=== PATIENT | male | born 1985 | race Two or more races ===

== ENCOUNTER 2023-10-26 16:13 | Inpatient (IN) | payer BC, OTHER ==
[~2023-10-26] VITALS: Ht 160 cm; Wt 94.9 kg
[2023-10-26] MEDS: MAALOX PLUS or MAALOX 30 ML PO ONE (20:17)
[2023-10-26] MEDS: GLUCAGON EMERG KIT 1mg/1ml IV ONE (22:17)
[2023-10-26 22:58] VITALS: PULSE 89; RESP 20; O2SAT 95
[2023-10-26] MEDS: METOCLOPRAMIDE HCL 5MG/ml INJ 2ml VIAL IV ONE (23:34)
[2023-10-26] MEDS: LORazepam 2MG/ML-1ML VIAL IV ONE (23:57)
[2023-10-27] VITALS (8 sets, daily range): BP systolic 136–141; BP diastolic 81–87; PULSE 76–91; RESP 16–20; TEMP 36.6; O2SAT 92–100
[2023-10-27 02:43] LABS: Basophils # (auto) 0.1 10 ^3/uL (0-0.2); Basophils % (auto) 0.9 % (0.0-2.0); Eosinophils # (auto) 0.2 10 ^3/uL (0-0.8); Eosinophils % (auto) 1.4 % (0.0-7.0); Hematocrit 46.6 % (41.0-53.0); Hemoglobin 15.5 g/dL (13.5-17.5); Lymphocytes # (auto) 2.1 10 ^3/uL (0.4-5.4); Lymphocytes % (auto) 13.9 % (10.0-50.0); Mean Corpuscular Hgb Conc. 33.2 g/dL (32.0-36.0); Mean Corpuscular Volume 81.4 fL (80.0-100.0); Monocytes # (auto) 1.2 10 ^3/uL (0-1.3); Monocytes % (auto) 7.5 % (0.0-12.0); Neutrophils # (auto) 11.8 10 ^3/uL (1.6-8.6); Neutrophils % (auto) 76.3 % (37.0-80.0); Red Blood Cells 5.72 10^6/uL (4.5-5.90); Red Cell Distribution Width 14.4 % (11.8-14.3); White Blood Cell 15.4 10^3/uL (4.4-10.8)
[2023-10-27 02:53] LABS: Alanine Aminotransferase 58 U/L (7-40); Albumin 4.5 g/dL (3.2-4.8); Alkaline Phosphatase 100 U/L (46-116); Anion Gap 10 (5-15); Aspartate Aminotransferase 36 U/L (13-40); BUN/Creatinine Ratio 24.4 (10.0-20.0); Bilirubin, Total 0.7 mg/dL (0.2-1.0); Blood Urea Nitrogen 22 mg/dL (9-23); Calcium 9.6 mg/dL (8.7-10.4); Carbon Dioxide 22 mmol/L (20-30); Chloride 111 mmol/L (98-107); Glucose 103 mg/dL (74-106); Potassium 4.1 mmol/L (3.5-5.1); Sodium 143 mmol/L (136-145); Total Protein 7.7 g/dL (5.7-8.2)
[2023-10-27] MEDS ORDERED: ONDANSETRON HCL 4 MG/2 ML VIAL IV PRN (04:45)
[2023-10-27] MEDS ORDERED: HYDROcodone-ACET 5/325MG TAB PO PRN (04:45)
[2023-10-27] MEDS ORDERED: NITROGLYCERIN 0.4 MG SL TAB SL PRN (04:45)
[2023-10-27] MEDS ORDERED: DOCUSATE SOD 100 MG CAP PO PRN (04:45)
[2023-10-27] MEDS ORDERED: MORPHINE SULFATE INJ 2 MG/ml SYRG IV PRN (04:45)
[2023-10-27] MEDS ORDERED: ACETAMINOPHEN 325 MG TAB PO PRN (04:45)
[2023-10-27] MEDS ORDERED: LORazepam 2MG/ML-1ML VIAL IV PRN (04:45)
[2023-10-27] MEDS: cefTRIAXone 1GM/50ML D5W 50 ML IV ONE (05:28)
[2023-10-27 05:44] LABS: Basophils # (auto) 0.1 10 ^3/uL (0-0.2); Basophils % (auto) 0.8 % (0.0-2.0); Monocytes # (auto) 1.2 10 ^3/uL (0-1.3); Nucleated Red Blood Cells % 0.2 %
[2023-10-27 05:47] LABS: Eosinophils # (auto) 0.3 10 ^3/uL (0-0.8); Eosinophils % (auto) 2.5 % (0.0-7.0); Hematocrit 45.1 % (41.0-53.0); Lymphocytes # (auto) 2.6 10 ^3/uL (0.4-5.4); Lymphocytes % (auto) 19.5 % (10.0-50.0); Mean Corpuscular Hemoglobin 26.9 pg (28.0-32.0); Mean Corpuscular Hgb Conc. 33.3 g/dL (32.0-36.0); Mean Corpuscular Volume 80.7 fL (80.0-100.0); Neutrophils # (auto) 9.2 10 ^3/uL (1.6-8.6); Neutrophils % (auto) 68.2 % (37.0-80.0); Red Blood Cells 5.59 10^6/uL (4.5-5.90); Red Cell Distribution Width 14.6 % (11.8-14.3); White Blood Cell 13.4 10^3/uL (4.4-10.8)
[2023-10-27] MEDS: D5W/SOD CHL 0.45% 1,000 ML IV SCH (05:58)
[2023-10-27 06:06] LABS: Alanine Aminotransferase 56 U/L (7-40); Albumin 4.5 g/dL (3.2-4.8); Alkaline Phosphatase 101 U/L (46-116); Anion Gap 11 (5-15); Aspartate Aminotransferase 34 U/L (13-40); BUN/Creatinine Ratio 26.7 (10.0-20.0); Blood Urea Nitrogen 23 mg/dL (9-23); Calcium 9.6 mg/dL (8.5-10.1); Carbon Dioxide 22 mmol/L (20-30); Chloride 111 mmol/L (98-107); Glucose 98 mg/dL (74-106); Potassium 3.9 mmol/L (3.5-5.1); Sodium 144 mmol/L (136-145)
[2023-10-27 06:07] LABS: Bilirubin, Total 0.7 mg/dL (0.2-1.0); Total Protein 7.3 g/dL (5.7-8.2)
[2023-10-27] MEDS ORDERED: cefTRIAXone 1GM/50ML D5W 50 ML IV SCH (09:00)
[2023-10-27 14:05] LABS: INR 1.05 (0.9-1.15)
[2023-10-27] MEDS ORDERED: LIDOCAINE 1% (LOCAL ANESTH.) PF 5ml SDV IJ ONE (14:31)
[2023-10-27] MEDS ORDERED: MIDAZOLAM HCL 2MG/2ML 2ml VIAL (1mg/ml) ONE (14:39)
[2023-10-27] MEDS ORDERED: KETAMINE 50mg/ML 1ml syringe ONE (14:39)
[2023-10-27] MEDS ORDERED: PROPOFOL 10 MG/ML 20 ML IV ONE (14:53)
[2023-10-27] MEDS: ONDANSETRON HCL 4 MG/2 ML VIAL IV ONE (15:15)
[2023-10-27] MEDS: SUCRALFATE 1 GM/10 ML ORAL SUSP PO SCH (18:01)
[2023-10-28] VITALS (9 sets, daily range): BP systolic 126–138; BP diastolic 80–86; PULSE 62–80; RESP 16–19; TEMP 36.6; O2SAT 95–97
[2023-10-28 06:24] LABS: Basophils # (auto) 0.1 10 ^3/uL (0-0.2); Eosinophils # (auto) 0.7 10 ^3/uL (0-0.8); Eosinophils % (auto) 6.3 % (0.0-7.0); Hematocrit 40.7 % (41.0-53.0); Hemoglobin 13.3 g/dL (13.5-17.5); Lymphocytes % (auto) 26.6 % (10.0-50.0); Mean Corpuscular Hemoglobin 26.8 pg (28.0-32.0); Mean Corpuscular Hgb Conc. 32.8 g/dL (32.0-36.0); Mean Corpuscular Volume 81.8 fL (80.0-100.0); Monocytes # (auto) 0.9 10 ^3/uL (0-1.3); Monocytes % (auto) 8.3 % (0.0-12.0); Neutrophils # (auto) 6.4 10 ^3/uL (1.6-8.6); Neutrophils % (auto) 57.8 % (37.0-80.0); Red Blood Cells 4.97 10^6/uL (4.5-5.90); Red Cell Distribution Width 14.2 % (11.8-14.3); White Blood Cell 11.1 10^3/uL (4.4-10.8)
[2023-10-28 06:43] LABS: Alanine Aminotransferase 43 U/L (7-40); Albumin 3.9 g/dL (3.2-4.8); Alkaline Phosphatase 90 U/L (46-116); Anion Gap 8 (5-15); Aspartate Aminotransferase 28 U/L (13-40); BUN/Creatinine Ratio 18.4 (10.0-20.0); Bilirubin, Total 0.7 mg/dL (0.2-1.0); Blood Urea Nitrogen 16 mg/dL (9-23); Calcium 8.7 mg/dL (8.5-10.1); Carbon Dioxide 23 mmol/L (20-30); Chloride 110 mmol/L (98-107); Glucose 93 mg/dL (74-106); Potassium 3.7 mmol/L (3.5-5.1); Sodium 141 mmol/L (136-145); Total Protein 6.3 g/dL (5.7-8.2)
[2023-10-28] MEDS: cefTRIAXone 1GM/50ML D5W 50 ML IV SCH (09:59)
[2023-10-29] VITALS (7 sets, daily range): BP systolic 117–167; BP diastolic 79–97; PULSE 59–77; RESP 17–20; TEMP 97.4–98.4; O2SAT 92–95
[2023-10-29 17:42] LABS: Urine Bacteria None Seen /hpf (None Seen)
[2023-10-29 17:57] LABS: Urine Blood Negative /uL (Negative); Urine Clarity Clear (Clear); Urine Color Colorless (Yellow); Urine Protein, UAD Negative (Negative); Urine Specific Gravity 1.007 (1.001-1.035); Urine Urobilinogen Normal (Negative); Urine WBC <1 /hpf (0 - 3)
[2023-10-29] MEDS: PANTOPRAZOLE 40 MG TAB PO SCH (22:18)
[2023-10-30 05:00] VITALS: BP 137/99; PULSE 75; RESP 20; TEMP 98; O2SAT 94
[2023-10-30 06:10] LABS: Basophils # (auto) 0.1 10 ^3/uL (0-0.2); Basophils % (auto) 0.9 % (0.0-2.0); Eosinophils # (auto) 0.8 10 ^3/uL (0-0.8); Eosinophils % (auto) 7.2 % (0.0-7.0); Hematocrit 41.2 % (41.0-53.0); Lymphocytes # (auto) 2.7 10 ^3/uL (0.4-5.4); Mean Corpuscular Hemoglobin 27.2 pg (28.0-32.0); Monocytes # (auto) 0.9 10 ^3/uL (0-1.3); Monocytes % (auto) 8.6 % (0.0-12.0); Neutrophils # (auto) 6.4 10 ^3/uL (1.6-8.6); Neutrophils % (auto) 58.3 % (37.0-80.0); Nucleated Red Blood Cells % 0.1 %; Red Blood Cells 5.15 10^6/uL (4.5-5.90); Red Cell Distribution Width 14.2 % (11.8-14.3); White Blood Cell 10.9 10^3/uL (4.4-10.8)
[2023-10-30 06:20] LABS: Alanine Aminotransferase 46 U/L (7-40); Alkaline Phosphatase 95 U/L (46-116); Anion Gap 9 (5-15); Aspartate Aminotransferase 27 U/L (13-40); BUN/Creatinine Ratio 10.4 (10.0-20.0); Blood Urea Nitrogen 8 mg/dL (9-23); Calcium 8.9 mg/dL (8.7-10.4); Carbon Dioxide 22 mmol/L (20-30); Chloride 108 mmol/L (98-107); Glucose 99 mg/dL (74-106); Potassium 3.7 mmol/L (3.5-5.1); Sodium 139 mmol/L (136-145)
[2023-10-30 06:21] LABS: Bilirubin, Total 0.4 mg/dL (0.2-1.0); Total Protein 6.9 g/dL (5.7-8.2)
[2023-10-30 08:00] VITALS: PULSE 75; RESP 20
[2023-10-30 09:00] VITALS: BP 149/98; PULSE 64; RESP 17; TEMP 98.2; O2SAT 94
[2023-10-30 13:00] VITALS: BP 148/105; PULSE 77; RESP 17; TEMP 98; O2SAT 95
[2023-10-30] MEDS: amLODIPine BESYLATE 5 MG TAB PO SCH (13:02)
[2023-10-30 17:00] VITALS: BP 131/93; PULSE 74; RESP 16; TEMP 98.4; O2SAT 95
[2023-10-30 21:00] VITALS: BP 124/78; PULSE 78; RESP 17; TEMP 98; O2SAT 98
[2023-10-31] VITALS (8 sets, daily range): BP systolic 115–160; BP diastolic 79–107; PULSE 66–105; RESP 17–20; TEMP 97.9–98.1; O2SAT 94–97
[2023-11-01 05:00] VITALS: BP 136/86; PULSE 76; RESP 18; TEMP 98.2; O2SAT 97
[2023-11-01 08:00] VITALS: PULSE 83; RESP 17; O2SAT 94
[2023-11-01 08:32] VITALS: BP 138/91; PULSE 83; RESP 17; TEMP 98.9; O2SAT 94
[2023-11-01] MEDS ORDERED: PANT40TA2 PO (11:38)
[2023-11-01] MEDS ORDERED: LEVO500T91 PO (11:38)
[2023-11-01 12:46] VITALS: BP 149/89; PULSE 85; RESP 17; TEMP 98.1; O2SAT 98
[2023-11-01 13:12] VITALS: BP 149/89; PULSE 85; RESP 17; TEMP 98.1; O2SAT 98
== END 2023-11-01 14:32 | disposition home or self-care (01) | DRG 872 ==
LOC: ER 16:13 → OVERFLOW 10-27 04:43 → EAST 10-27 16:07
PROVIDERS: ADMIT Nurse Practitioner Family; ATTEND Nurse Practitioner Acute Care
PROC: 0DB68ZX Excision of Stomach, Via Natural or Artificial Opening Endoscopic, Diagnostic (ICD-10-PCS; 2023-10-27)
PROC: 0DB28ZX Excision of Middle Esophagus, Via Natural or Artificial Opening Endoscopic, Diagnostic (ICD-10-PCS; 2023-10-27)
PROC: 0DB48ZX Excision of Esophagogastric Junction, Via Natural or Artificial Opening Endoscopic, Diagnostic (ICD-10-PCS; 2023-10-27)
PROC: 0DC28ZZ Extirpation of Matter from Middle Esophagus, Via Natural or Artificial Opening Endoscopic (ICD-10-PCS; 2023-10-27)
PROC: 0DB98ZX Excision of Duodenum, Via Natural or Artificial Opening Endoscopic, Diagnostic (ICD-10-PCS; principal; 2023-10-27 14:36)
DX: A41.50 Gram-negative sepsis, unspecified (principal); F84.0 Autistic disorder; K22.10 Ulcer of esophagus without bleeding; T18.128A Food in esophagus causing other injury, initial encounter; K22.2 Esophageal obstruction; K29.70 Gastritis, unspecified, without bleeding; E66.9 Obesity, unspecified; K44.9 Diaphragmatic hernia without obstruction or gangrene; R26.81 Unsteadiness on feet; R13.10 Dysphagia, unspecified; Z68.37 Body mass index [BMI] 37.0-37.9, adult; W44.F3XA Food entering into or through a natural orifice, initial encounter; Y93.89 Activity, other specified; Y92.89 Other specified places as the place of occurrence of the external cause; Y99.8 Other external cause status
CPT/HCPCS: 36415; 70490; 71250; 80053; 81001; 85025; 85610; 87040; G0378; J2250; J2405; J2704